=== PATIENT | female | born 1995 | race Caucasian/White ===

== ENCOUNTER → 2020-03-09 | Outpatient (CLI) | payer OTHER, MEDICAID ==
[~2020-03-09] MED LIST: AMOX500C2 PO; DOCU-143 PO; HYDR-4226 PO; IBUP-1773 PO; SERT25TA PO
--- NOTE | 2020-03-09 09:10 | Diagnostic Imaging Report ---
PROCEDURE: MRI lumbar spine. TECHNIQUE: Multiplanar, multisequence MRI of the lumbar spine was performed without contrast. INDICATION: Lower back pain. COMPARISON: None. FINDINGS: For the purposes of this exam, the last well-formed disc space is denoted the L5-S1 level. Static alignment is maintained. There is no significant sammie or retrolisthesis. There is no evidence of jumped facets. The vertebral body heights are maintained. There is no acute fracture. Marrow signal is normal throughout. Intervertebral disc heights show height loss at the L4-L5 level. Otherwise, the intervertebral disc heights are fairly well-maintained. The visualized portions of the distal cord are unremarkable. The conus terminates at approximately the T12-L1 level. No abnormal intrathecal filling defects are seen. The pre and paravertebral soft tissue structures are unremarkable. Axial images demonstrate the following: L1-L2 through L3-L4: There is no large disc bulge or focal protrusion. There is no significant spinal canal or neuroforaminal stenosis. L4-L5: There is large central posterior disc protrusion with extrusion of disc material superiorly within the anterior epidural space posterior to the L4 vertebral body. As a result, this results in severe spinal canal stenosis and moderate stenosis of the bilateral lateral recesses. There is also mild narrowing of the bilateral neuroforamen. L5-S1: There is no large disc bulge or focal protrusion. There is no significant spinal canal or neuroforaminal stenosis. IMPRESSION: 1. Large posterior disc protrusion with extrusion of disc material at the L4-L5 level resulting in severe spinal canal stenosis. 2. No acute fracture or dislocation of the lumbar spine. Dictated by: Dictated on workstation # [id number]
== END ==
LOC: RAD 07:49
PROVIDERS: ATTEND Nurse Practitioner Family
DX: M51.16 Intervertebral disc disorders with radiculopathy, lumbar region (principal)
CPT/HCPCS: 72148

== ENCOUNTER 2023-02-23 19:42 | Emergency (ER) | payer MEDICAID, OTHER ==
[~2023-02-23] VITALS: Ht 162.6 cm; Wt 86.2 kg
[2023-02-23 20:39] LABS: BACTERIA,URINE MODERATE /HPF; BILIRUBIN,URINE NEGATIVE (NEGATIVE); CLARITY,URINE CLEAR; COLOR,URINE YELLOW; GLUCOSE, URINE (UA) NEGATIVE (NEGATIVE); KETONES,URINE NEGATIVE (NEGATIVE); LEUKOCYTE ESTERASE ,URINE 3+ (NEGATIVE); NITRITE,URINE NEGATIVE (NEGATIVE); PH,URINE 7.5 (5-9); PROTEIN,URINE 3+ (NEGATIVE); RBC,URINE TNTC /HPF; WBC,URINE TNTC /HPF
[2023-02-23] MEDS ORDERED: cefTRIAXone IV/IM 1,000 MG in NS (IVPB) 50 ML 50 ML IV STA (20:44)
[2023-02-23] MEDS ORDERED: KETOROLAC INJ 30 MG/ML VIAL IVP ONE (20:45)
[2023-02-23] MEDS ORDERED: LACTATED RINGERS 1,000 ML 1,000 ML IV ONE (20:45)
--- NOTE | 2023-02-23 20:49 | ED Abdominal Pain ---
General Chief Complaint: - Reproductive Stated Complaint: RIGHT SIDE PAIN Nursing Triage Note: PT A&OX3; PT AMBULATES TO ROOM WITHOUT ASSISTANCE OF ER STAFF; PT ADVISES THAT FOR THE PAST COUPLE OF WEEKS SHE HAS HAD FLANK PAIN AND DISCOMFORT; PT ADVISES THAT HER MOTHER HAD AN OLD ANTIBIOTIC THAT SHE GAVE HER AND HAS TAKEN INTERMITTENTLY; PT ADVISES THAT SHE FELT SHE WAS GETTING BETTER BUT STARTING TODAY HER SYMPTOMS SIGNIFICANTLY WORSENED Source of Information: Patient Exam Limitations: No Limitations History of Present Illness Date Seen by Provider: Feb 23, 2023 Time Seen by Provider: 20:08 Initial Comments This 28-year-old young lady presents to the emergency room with complaints of right flank pain that radiates posterior to the lower back. Symptoms have been present for a few days. Her mother gave her some leftover antibiotics of which she has probably taken 3 doses. She does not recall what the antibiotic is. Symptoms started about 10 days ago with dysuria and cloudy urine. The pain has been present for a few days. She denies any blood in her urine. She has experienced nausea and chills but no fever. She denies any constipation or diarrhea. She has not had any vaginal symptoms. She does not have a primary care provider. Vital signs are unremarkable at this time. Allergies and Home Medications Allergies Coded Allergies: No Known Drug Allergies (Unverified , 08/29/14) Patient Home Medication List Home Medication List Reviewed: Yes Docusate Sodium (Colace) 100 Mg Capsule, 100 MG PO BID PRN for CONSTIPATION-1ST LINE Prescribed by: ISMA KRISHNAMURTHY on 03/15/182028 Hydrocodone/Acetaminophen (Hydrocodone/Acetaminophen 5 MG/325 MG TAB) 1 Each Tablet, 1-2 TAB PO Q6H Prescribed by: ISMA KRISHNAMURTHY on 03/15/182028 Ibuprofen (Ibuprofen) 600 Mg Tablet, 600 MG PO Q6H Prescribed by: ISMA KRISHNAMURTHY on 03/15/182028 Sertraline HCl (Zoloft) 25 Mg Tablet, 25 MG PO DAILY Prescribed by: ALESSANDRA RAJAN on 03/17/18 104 Sulfamethoxazole/Trimethoprim (Bactrim Ds Tablet) 1 Each Tablet, 1 EACH PO BID Prescribed by: QUIQUE PEMBERTON on 02/23/232206 Review of Systems Review of Systems Constitutional: see HPI, chills EENTM: No Symptoms Reported Respiratory: No Symptoms Reported Cardiovascular: No Symptoms Reported Gastrointestinal: See HPI Genitourinary: See HPI Musculoskeletal: no symptoms reported Skin: no symptoms reported Psychiatric/Neurological: No Symptoms Reported Endocrine: No Symptoms Reported Hematologic/Lymphatic: No Symptoms Reported Past Kijpeli-Jmvleg-Gyrhal Hx Patient Social History Tobacco Use?: Yes Use of E-Cig and/or Vaping dev: Yes E-Cig or Vaping type used: Nicotine Substance use?: No Alcohol Use?: Yes Alcohol Frequency: Once in a while Pt feels they are or have been: No Immunizations Up To Date PED Vaccines UTD: Yes First/Initial COVID19 Vaccinat: N/A Seasonal Allergies Seasonal Allergies: Yes Past Medical History Surgery/Hospitalization HX: TUBAL LIGATION Surgeries: Yes (wisdom teeth) Section, Orthopedic (achilles tendon repair as young child), Tubal Ligation Respiratory: No Cardiac: No Neurological: No : No Gastrointestinal: No Musculoskeletal: No Endocrine: No HEENT: No Cancer: No Psychosocial: No Integumentary: No Blood Disorders: No Adverse Reaction/Blood Tranf: No Physical Exam Vital Signs Vital Signs - First Documented 02/23/23 19:50 Temp 37.5 Pulse 87 Resp 16 B/P (MAP) 104/64 (77) Pulse Ox 100 O2 Delivery Room Air Capillary Refill : Less Than 3 Seconds Height/Weight/BMI Height: 5'4.00" Weight: 230lbs. 2.0oz. 104.994574ld; 32.00 BMI Method:Stated General Appearance: WD/WN, no apparent distress HEENT: normal ENT inspection Neck: normal inspection Respiratory: lungs clear, normal breath sounds, no respiratory distress Cardiovascular: regular rate, rhythm, no edema, no murmur Gastrointestinal: normal bowel sounds, soft; No distended; tenderness (right sided) Back: CVA tenderness (R) (mild) Neurologic/Psychiatric: ham doctor II-XII nml as tested, no motor/sensory deficits, alert, normal mood/affect, oriented x 3 Skin: normal color, warm/dry Progress/Results/Core Measures Results/Orders Lab Results Laboratory Tests Test 02/23/23 20:00 02/23/23 21:05 Range/Units Urine Color YELLOW Urine Clarity CLEAR Urine pH 7.5 5-9 Urine Specific [place] 1.020 1.016-1.022 Urine Protein 3+ H NEGATIVE Urine Glucose (UA) NEGATIVE NEGATIVE Urine Ketones NEGATIVE NEGATIVE Urine Nitrite NEGATIVE NEGATIVE Urine Bilirubin NEGATIVE NEGATIVE Urine Urobilinogen 0.2 < = 1.0 MG/DL Urine Leukocyte Esterase 3+ H NEGATIVE Urine RBC (Auto) 3+ H NEGATIVE Urine RBC TNTC H /HPF Urine WBC TNTC H /HPF Urine Squamous Epithelial Cells 2-5 /HPF Urine Crystals NONE /LPF Urine Bacteria MODERATE H /HPF Urine Casts NONE /LPF Urine Mucus NEGATIVE /LPF Urine Culture Indicated YES Urine Test NEGATIVE NEGATIVE White Blood Count 16.2 H 4.3-11.0 10^3/uL Red Blood Count 4.51 3.80-5.11 10^6/uL Hemoglobin 14.0 11.5-16.0 g/dL Hematocrit 42 35-52 % Mean Corpuscular Volume 93 80-99 fL Mean Corpuscular Hemoglobin 31 25-34 pg Mean Corpuscular Hemoglobin Concent 34 32-36 g/dL Red Cell Distribution Width 11.8 10.0-14.5 % Platelet Count 243 130-400 10^3/uL Mean Platelet Volume 9.2 9.0-12.2 fL Immature Granulocyte % (Auto) 1 % Neutrophils (%) (Auto) 78 H 42-75 % Lymphocytes (%) (Auto) 15 12-44 % Monocytes (%) (Auto) 6 0-12 % Eosinophils (%) (Auto) 1 0-10 % Basophils (%) (Auto) 0 0-10 % Neutrophils # (Auto) 12.6 H 1.8-7.8 10^3/uL Lymphocytes # (Auto) 2.4 1.0-4.0 10^3/uL Monocytes # (Auto) 1.0 0.0-1.0 10^3/uL Eosinophils # (Auto) 0.2 0.0-0.3 10^3/uL Basophils # (Auto) 0.0 0.0-0.1 10^3/uL Immature Granulocyte # (Auto) 0.1 0.0-0.1 10^3/uL Neutrophils % (Manual) 74 % Lymphocytes % (Manual) 21 % Monocytes % (Manual) 4 % Eosinophils % (Manual) 1 % Blood Morphology Comment NORMAL Sodium Level 139 135-145 MMOL/L Potassium Level 3.8 3.6-5.0 MMOL/L Chloride Level 103 98-107 MMOL/L Carbon Dioxide Level 26 21-32 MMOL/L Anion Gap 10 5-14 MMOL/L Blood Urea Nitrogen 8 7-18 MG/DL Creatinine 0.74 0.60-1.30 MG/DL Estimat Glomerular Filtration Rate 113 BUN/Creatinine Ratio 11 Glucose Level 98 70-105 MG/DL Calcium Level 9.5 8.5-10.1 MG/DL Corrected Calcium 8.5-10.1 MG/DL Total Bilirubin 0.3 0.1-1.0 MG/DL Aspartate Amino Transf (AST/SGOT) 17 5-34 U/L Alanine Aminotransferase (ALT/SGPT) 27 0-55 U/L Alkaline Phosphatase 56 40-136 U/L Total Protein 8.0 6.4-8.2 GM/DL Albumin 4.7 H 3.2-4.5 GM/DL Micro Results Microbiology 02/23/23 Urine Culture - Preliminary, Resulted Gram Negative Bacillus 1 My Orders Orders - QUIQUE REGALADO MD Hcg,Qualitative Urine (02/23/23 20:16) Ua Culture If Indicated (02/23/23 20:21) Urine Culture (02/23/23 20:00) Ketorolac Injection (Ketorolac Injection (02/23/23 20:45) Lactated Ringers 1,000 Ml (Lactated Ring (02/23/23 20:45) Cbc And Automated Diff (02/23/23 20:44) Comprehensive Metabolic Panel (02/23/23 20:44) Ceftriaxone Iv/Im (Ceftriaxone Iv/Im) (02/23/23 20:44) Ct Abd/Pelvis Wo(Kidney Stone) (02/23/23 20:44) Ed Iv/Invasive Line Start (02/23/23 20:44) Manual Differential (02/23/23 21:05) Medications Given in ED Vital Signs/I&O 02/23/23 02/23/23 19:50 22:30 Temp 37.5 Pulse 87 83 Resp 16 16 B/P (MAP) 104/64 (77) 108/70 Pulse Ox 100 100 O2 Delivery Room Air Room Air Blood Pressure Mean: 77 Progress Progress Note #1: Time: 20:47 Progress Note Urinalysis was reviewed and interpreted by me. There were too numerous to count red blood cells and WBC along with moderate bacteria. UTI and possibly pyelonephritis and/or ureteral stone is suspected. Labs are being obtained along with CT scan. Toradol is being administered for pain along with a liter of LR for hydration. Patient denies nausea at this time. Urine test was negative and patient has had a tubal ligation. Progress Note #2: Progress Note CT was obtained and viewed by me. There were no acute abnormalities by my interpretation. Specifically, I noted no ureteral stones. Radiologist's report was reviewed as noted below. There was suggestion of hydronephrosis and/or hydroureter on the right which could relate to recently passed ureteral stone or infection. Results were discussed with the patient. Labs were also obtained and interpreted by me. There was leukocytosis with WBC of 16.2. CBC was otherwise unremarkable. CMP was unremarkable. Urinalysis was interpreted as above. Patient was feeling better after hydration and Toradol. Rocephin was administered for treatment of infection. See discharge instructions for further discussion. Incidental finding of left kidney stone was noted. The importance of following up on hematuria was stressed to the patient. Diagnostic Imaging Diagonstic Imaging: CT Plain Films/CT/US/NM/MRI: abdomen, pelvis Comments NAME: EULOGIO GUILLEN [facility] REC#: [id number] PT STATUS: REG ER : 1995 PHYSICIAN: QUIQUE REGALADO MD ADMIT DATE: 02/23/23/ER Signed Date of Exam:02/23/23 CT ABD/PELVIS WO(KIDNEY STONE) PROCEDURE: CT urinary tract, rule out kidney stone. TECHNIQUE: Multiple contiguous axial images were obtained through the abdomen and pelvis without the use of intravenous contrast. Auto Exposure Controls were utilized during the CT exam to meet ALARA standards for radiation dose reduction. INDICATION: Flank pain. COMPARISON: None. FINDINGS: Lung bases are clear. The heart is normal in size. The liver demonstrates no focal lesion. The spleen appears normal. The pancreas is unremarkable on this noncontrast exam. The adrenal glands appear normal. There is mild right hydronephrosis and hydroureter. No obstructing stone is seen along the course of the ureter. There is a punctate nonobstructing calculus in the inferior left kidney with no hydronephrosis. The bowel loops are nondistended without obstruction. The appendix appears normal. There is moderate stool in the ascending and transverse colon. No free fluid or free air is seen. The aorta is normal in caliber. No lymphadenopathy is seen. IMPRESSION: 1. Mild right hydroureteronephrosis with no obstructing calculus seen. This could be due to a recently passed stone or possibly infection. 2. Moderate stool in the proximal colon, please correlate with any history of constipation. Dictated by: Dictated on workstation # [id number] Dict: 02/23/232137 Trans: 02/23/232156 PJE [id number] Interpreted by: XANDER RESENDIZ MD Electronically signed by: XANDER RESENDIZ MD 02/23/232156 Departure Impression Primary Impression: Urinary tract infection Qualified Codes: N39.0 - Urinary tract infection, site not specified; R31.9 - Hematuria, unspecified Additional Impressions: Hydroureter, right Left renal stone Disposition: 01 HOME, SELF-CARE Condition: Improved Departure-Patient Inst. Decision time for Depature: 21:58 Referrals: [facility] [place] Primary Care Physician Patient Instructions: Blood in Urine (Hematuria), Adult ED, Kidney stones in adults, Urinary tract infections in adults Add. Discharge Instructions: You have evidence of significant urinary tract infection. Your CT scan suggested this infection may be ascending up the right ureter toward your kidney. It is important that you take your antibiotics as prescribed and complete the entire course of antibiotics. You should follow-up on the urine culture results on Saturday or Saturday. This will help ensure the antibiotic you have been prescribed is the best option for the type of bacteria causing your infection. If you are not able to establish with a primary care provider by that time, you may contact the emergency room to obtain culture results. Drink plenty of clear liquids to stay well-hydrated and flush out the urinary tract. Urinate often. For pain you may take ibuprofen up to 600 mg every 6 hours as needed and/or Tylenol (acetaminophen) up to 1000 mg every 6 hours as needed. [id number] Azo may also be helpful in reducing pain. You should be aware that there is a small kidney stone in your left kidney. This is not likely related to your symptoms in the ER today but could cause problems in the future. There was swelling of the right ureter (tube from kidney to bladder) which could mean you recently passed a kidney stone on the right side. This could also be from infection ascending up the ureter toward the kidney. There was blood in your urine today. It is important that you follow-up with a primary care provider in 2 or 3 weeks to have your urine tested again. You may need further evaluation if the blood in your urine does not clear with treatment of the infection. Blood in the urine could be caused by serious illnesses such as kidney stones, bladder cancer, etc. and needs to be followed by a primary care provider. Please schedule an appointment as soon as possible for follow- up. Return to the emergency room if you have worsening symptoms despite following these instructions including temperatures over 100 F, uncontrolled vomiting, escalating pain despite taking medications, etc. All discharge instructions reviewed with patient and/or family. Voiced understanding. Scripts Sulfamethoxazole/Trimethoprim (Bactrim Ds Tablet) 1 Each Tablet 1 EACH PO BID, #28 TAB Prov: QUIQUE REGALADO MD 02/23/23 QUIQUE REGALADO MD Feb 23, 2023 20:49
[2023-02-23 21:25] LABS: BASOPHILS % (AUTO) 0 % (0-10); EOSINOPHILS # (AUTO) 0.2 10^3/uL (0.0-0.3); EOSINOPHILS % (AUTO) 1 % (0-10); HEMATOCRIT 42 % (35-52); LYMPHOCYTES # (AUTO) 2.4 10^3/uL (1.0-4.0); LYMPHOCYTES % (AUTO) 15 % (12-44); MEAN CORPUSCULAR HEMOGLOBIN 31 pg (25-34); MEAN CORPUSCULAR HGB CONC 34 g/dL (32-36); MEAN CORPUSCULAR VOLUME 93 fL (80-99); MEAN PLATELET VOLUME 9.2 fL (9.0-12.2); MONOCYTES % (AUTO) 6 % (0-12); NEUTROPHILS # (AUTO) 12.6 10^3/uL (1.8-7.8); NEUTROPHILS % (AUTO) 78 % (42-75); PLATELET COUNT 243 10^3/uL (130-400); WHITE BLOOD COUNT 16.2 10^3/uL (4.3-11.0)
[2023-02-23 21:37] LABS: ALANINE AMINOTRANSFERASE 27 U/L (0-55); ALBUMIN 4.7 GM/DL (3.2-4.5); ALKALINE PHOSPHATASE 56 U/L (40-136); BILIRUBIN,TOTAL 0.3 MG/DL (0.1-1.0); BUN/CREATININE RATIO 11; CALCIUM 9.5 MG/DL (8.5-10.1); CARBON DIOXIDE 26 MMOL/L (21-32); CHLORIDE 103 MMOL/L (98-107); CREATININE SERUM 0.74 MG/DL (0.60-1.30); GFR ESTIMATED 113; GLUCOSE 98 MG/DL (70-105); POTASSIUM 3.8 MMOL/L (3.6-5.0); SODIUM 139 MMOL/L (135-145)
--- NOTE | 2023-02-23 21:48 | Diagnostic Imaging Report ---
PROCEDURE: CT urinary tract, rule out kidney stone. TECHNIQUE: Multiple contiguous axial images were obtained through the abdomen and pelvis without the use of intravenous contrast. Auto Exposure Controls were utilized during the CT exam to meet ALARA standards for radiation dose reduction. INDICATION: Flank pain. COMPARISON: None. FINDINGS: Lung bases are clear. The heart is normal in size. The liver demonstrates no focal lesion. The spleen appears normal. The pancreas is unremarkable on this noncontrast exam. The adrenal glands appear normal. There is mild right hydronephrosis and hydroureter. No obstructing stone is seen along the course of the ureter. There is a punctate nonobstructing calculus in the inferior left kidney with no hydronephrosis. The bowel loops are nondistended without obstruction. The appendix appears normal. There is moderate stool in the ascending and transverse colon. No free fluid or free air is seen. The aorta is normal in caliber. No lymphadenopathy is seen. IMPRESSION: 1. Mild right hydroureteronephrosis with no obstructing calculus seen. This could be due to a recently passed stone or possibly infection. 2. Moderate stool in the proximal colon, please correlate with any history of constipation. Dictated by: Dictated on workstation # [id number]
[2023-02-23] MEDS ORDERED: SULF1TAB38 PO (22:07)
[2023-02-23 22:15] LABS: EOSINOPHILS % (MANUAL) 1 %; LYMPHOCYTES % (MANUAL) 21 %; MONOCYTES % (MANUAL) 4 %; NEUTROPHILS % (MANUAL) 74 %; RBC MORPH NORMAL
[2023-02-23 22:30] VITALS: BP 108/70
== END 2023-02-23 22:30 | disposition home or self-care (01) ==
LOC: EDUNIT# 19:42 → ER 19:43
DX: N13.2 Hydronephrosis with renal and ureteral calculous obstruction (principal); N39.0 Urinary tract infection, site not specified; F17.290 Nicotine dependence, other tobacco product, uncomplicated
CPT/HCPCS: 36415; 74176; 80053; 81000; 84703; 85007; 85025; 85027; 87077; 87088; 87186; 96374; 96375